=== PATIENT | male | born 1945 | race Caucasian/White ===

== ENCOUNTER 2024-01-03 11:07 | Emergency (ER) | payer MEDICARE ==
[2024-01-03] MEDS ORDERED: Sodium Chloride 0.9% 10 ML Syringe FLUSH PRN (11:10)
[2024-01-03 11:18] LABS: BASOPHILS ABSOLUTE AUTO 0.02 K/uL (0.00-0.20); BASOPHILS PERCENT AUTO 0.2 % (0.0-2.0); EOSINOPHILS ABSOLUTE AUTO 0.07 K/uL (0.00-0.50); EOSINOPHILS PERCENT AUTO 0.7 % (0.0-5.0); HEMATOCRIT 27.1 % (39.0-49.0); HEMOGLOBIN 8.7 g/dL (13.1-16.8); LYMPHOCYTES ABSOLUTE AUTO 1.71 K/uL (0.50-3.50); LYMPHOCYTES PERCENT AUTO 18.2 % (10.0-50.0); MEAN CORPUSCULAR HEMOGLOBIN 29.8 pg (28.2-33.3); MEAN CORPUSCULAR HGB CONC 32.1 g/dL (31.7-36.0); MEAN CORPUSCULAR VOLUME 92.8 fL (84.0-98.0); MONOCYTES ABSOLUTE AUTO 0.87 K/uL (0.00-1.00); MONOCYTES PERCENT AUTO 9.3 % (2.0-14.0); NEUTROPHILS ABSOLUTE AUTO 6.71 K/uL (1.40-7.00); NEUTROPHILS PERCENT AUTO 71.6 % (45.0-80.0); PLATELET COUNT,PLT 211 K/uL (150-350); RED BLOOD CELL COUNT 2.92 M/uL (4.33-5.41); RED CELL DISTRIBUTION WIDTH 14.4 % (11.2-14.1); WHITE BLOOD CELL COUNT,WBC 9.4 K/uL (4.0-10.2)
[2024-01-03] MEDS: Lactated Ringers 1,000 ML IV ONE (11:26)
[2024-01-03 11:42] LABS: PROTHROMBIN TIME 10.2 SEC (9.0-11.1); PTT,PARTIAL THROMBOPLSTIN TIME 22.7 SEC (23.6-29.8)
[2024-01-03 11:44] LABS: ALANINE AMINOTRANSFERASE,ALT 14 U/L (12-78); ALBUMIN 2.7 g/dL (3.4-5.0); ALKALINE PHOSPHATASE 71 IU/L (46-116); ASPARTATE AMNIOTRANSFERASE,AST 12 U/L (15-37); BILIRUBIN TOTAL 0.5 mg/dL (0.2-1.0); BLOOD UREA NITROGEN,BUN 35 mg/dL (7-18); CALCIUM 8.1 mg/dL (8.5-10.1); CARBON DIOXIDE,CO2 29.1 mmol/L (21.0-32.0); CHLORIDE,CL 101 mmol/L (98-107); CREATININE 0.85 mg/dL (0.51-1.17); GLUCOSE RANDOM 126 mg/dL (70-99); MAGNESIUM 1.6 mg/dL (1.8-2.4); POTASSIUM,K 4.7 mmol/L (3.5-5.1); PRO B-TYPE NATRIUR PEPT,BNPPRO 208 pg/mL (0-125); PROTEIN TOTAL,TP 5.3 g/dL (6.4-8.2); SODIUM,NA 135 mmol/L (136-145)
[2024-01-03 11:45] LABS: ANION GAP 9.6 meq/L (7-15)
[2024-01-03 11:46] LABS: ESTIMATED GFR 90 mL/min (>=60)
[2024-01-03] MEDS: Iopamidol 612 MG/ML 100 ML Bottle IVPUSH ONE (13:21)
== END 2024-01-03 14:30 ==
LOC: LL.ED 11:07
DX: K92.1 Melena (principal); D64.9 Anemia, unspecified
CPT/HCPCS: 36415; 74178; 80053; 83605; 83735; 83880; 84484; 85025; 85610; 85730; 93005; 96360; 99285-25; J7120; Q9967